=== PATIENT | female | born 1985 | race Caucasian/White ===

== ENCOUNTER 2018-08-04 00:18 | Inpatient (IN) | payer OTHER ==
[2018-08-04 00:19] VITALS: BMI 28.1
--- NOTE | 2018-08-04 00:44 | C.PDOC ---
Chief Complaint (Nursing): Abdominal Pain Past Medical History Vital Signs: Last Vital Signs Temp 98.2 F 08/04/18 00:23 Pulse 88 08/04/18 00:23 Resp BP 138/90 08/04/18 00:23 Pulse Ox 100 08/04/18 00:23 - [facility] Procedures DELIVERY OF PRODUCTS OF CONCEPTION, EXTERNAL APPROACH (06/09/16) MONITORING OF POC, CARDIAC RATE, INSTRUCTIONAL SUPPORT SERVICES DIRECTOR APPROACH (06/09/16) REPAIR PERINEUM MUSCLE, OPEN APPROACH (06/09/16) - Social History Hx Alcohol Use: No Hx Substance Use: No - Immunization History Hx Tetanus Toxoid Vaccination: No Hx Influenza Vaccination: Yes Hx Pneumococcal Vaccination: No ED Course And Treatment O2 Sat by Pulse Oximetry: 100 Disposition - Disposition
[2018-08-04] MEDS ORDERED: Sodium Chloride 0.9% 1,000 ML IV ONE ×2 (01:07→04:07)
--- NOTE | 2018-08-04 01:17 | C.PDOC ---
History Of Present Illness 33 y/o female, with no significant PMHx, presents to the ED for evaluation of RUQ pain gradually developing since 9:00pm. Pain is radiating to the right flank. Patient reports symptoms began after eating vegetable jean for dinner. N o associated nausea or vomiting. States she took naproxen prior to arrival without any relief. She otherwise denies any fever, chills, diarrhea, bowel or bladder incontinence. Patient reports was recently diagnosed with a UTI a few days ago and completed day 3 of Macrobid today. Time Seen by Provider: 08/04/18 00:47 Chief Complaint (Nursing): Abdominal Pain History Per: Patient History/Exam Limitations: no limitations Onset/Duration Of Symptoms: Hrs Current Symptoms Are (Timing): Still Present Context: Food Location Of Pain/Discomfort: RUQ Radiation Of Pain To:: Flank Quality Of Discomfort: "Pain" Past Medical History Reviewed: Historical Data, Nursing Documentation, Vital Signs Vital Signs: Last Vital Signs Temp 98.2 F 08/04/18 00:23 Pulse 88 08/04/18 00:23 Resp BP 138/90 08/04/18 00:23 Pulse Ox 100 08/04/18 00:23 Surgical History: No Surg Hx - [facility] Procedures DELIVERY OF PRODUCTS OF CONCEPTION, EXTERNAL APPROACH (06/09/16) MONITORING OF POC, CARDIAC RATE, SANITARIAN AIDE APPROACH (06/09/16) REPAIR PERINEUM MUSCLE, OPEN APPROACH (06/09/16) Family History: States: No Known Family Hx - Social History Hx Tobacco Use: No Hx Alcohol Use: No Hx Substance Use: No - Immunization History Hx Tetanus Toxoid Vaccination: No Hx Influenza Vaccination: Yes Hx Pneumococcal Vaccination: No Review Of Systems Except As Marked, All Systems Reviewed And Found Negative. Constitutional: Negative for: Fever, Chills, Sweats Respiratory: Negative for: Shortness of Breath Gastrointestinal: Positive for: Abdominal Pain (RUQ). Negative for: Nausea, Vomiting, Diarrhea, Hematochezia Genitourinary: Positive for: Dysuria. Negative for: Hematuria, Vaginal Bleeding Physical Exam - Physical Exam Appears: Non-toxic, No Acute Distress Skin: Normal Color, Warm, Dry, No Rash Head: Normacephalic Eye(s): bilateral: PERRL Oral Mucosa: Moist Throat: No Erythema Neck: Trachea Midline, Supple Cardiovascular: Rhythm Regular, No Murmur, No JVD Respiratory: No Decreased Breath Sounds, No Accessory Muscle Use, No Rales, No Stridor, No Wheezing Gastrointestinal/Abdominal: Soft, Tenderness (RUQ, mod), No Guarding, No Rebound Back: No CVA Tenderness, No Vertebral Tenderness Extremity: Normal ROM, No Deformity, No Swelling Extremity: Bilateral: Normal Color And Temperature, Normal ROM Neurological/Psych: Oriented x3, Normal Speech, Normal Motor, Normal Sensation, Normal Reflexes ED Course And Treatment - Laboratory Results Result Diagrams: 08/04/18 01:38 08/04/18 01:38 Lab Interpretation: Abnormal Urine POC: Negative O2 Sat by Pulse Oximetry: 100 (on RA) Pulse Ox Interpretation: Normal - CT Scan/US CT A/P Other Rad Studies (CT/US): Read By Radiologist, Radiology Report Reviewed CT/US Interpretation: CT SCAN OF THE ABDOMEN AND PELVIS WITH CONTRAST. CLINICAL HISTORY: Abdominal pain. TECHNIQUE: Multiple axial and coronal CT images were obtained through the abdomen and pelvis after administration of intravenous contrast material. COMMENTS: Fluid-filled stomach. Moderate amount of food residue is noted in the large bowels. Uncomplicated colonic diverticulosis. Mild diffuse thickening and enhancement of the gallbladder. The liver is of uniform attenuation without mass or defect. There is no intra or extrahepatic biliary ductal dilatation. The spleen is normal. The pancreas is of normal contour and attenuation characteristics. There is no evidence of adrenal mass. Both kidneys demonstrate prompt and equal nephrograms. The kidneys are normal in size, shape and configuration. There is no evidence of renal or ureteral mass. No renal or ureteral calculi are identified. There is no hydroureter or hydronephrosis. No evidence for appendicitis. There is no bowel wall thickenin g. No evidence for small or large bowel obstruction. There is no evidence of abdominal ascites or lymphadenopathy. There is no evidence of intrinsic or extrinsic bladder mass. There is no pelvic ascites or lymphadenopathy. Fat containing umbilical hernia without incarceration. Images of the lung bases show no evidence of pleural or parenchymal mass. There are no pleural effusions. The bony structures are free of lytic or blastic lesions. IMPRESSION: Fluid- filled stomach. Moderate amount of food residue is noted in the large bowels. Uncomplicated colonic diverticulosis. Mild diffuse thickening and enhancement of the gallbladder. Sonographic evaluation is suggested. Abd US Other Rad Studies (CT/US): Read By Radiologist, Radiology Report Reviewed CT/US Interpretation: Ultrasound of the gallbladder. Indication: Right upper quadrant pain for a week. Technique: Real-time ultrasound images were obtained. Findings: Nonaneurysmal aorta measuring 1.6 cm. Right kidney measures 10.8x3.7x4.2 cm. Diffuse thickening of the gallbladder measuring 6.1 mm. Nondilated common bile duct measuring 3.5 mm. Mildly enlarged liver measuring 16.9 cm. Diffuse increased hepatic echogenicity suggestive of hepatic steatosis. Mild amount of pericholecystic free fluid is noted. Impression: Cholelithiasis. Suspected developing acute inflammatory changes of the gallbladder. Progress Note: Blood work, UA, and CT A/P ordered and reviewed. IV fluids, toradol, and zofran administered. Pt remained tsable during the ED evaluation. Blood work review, high LFT noted. CT A/P:Mild diffuse thickening and enhancement of the gallbladder. Sonographic evaluation is suggested. case discussed with vice president network .Gallbladder US- pending. Admission to recommend with Dx: Acute cholecystitis. Disposition - Disposition Disposition: HOSPITALIZED Disposition Time: 03:51 Condition: STABLE - Clinical Impression Clinical Impression: Cholecystitis, UTI (urinary tract infection) - PA / HEALTH OUTCOMES LIAISON / Resident Statement MD/DO has reviewed & agrees with the documentation as recorded. - Scribe Statement The provider has reviewed the documentation as recorded by the Scribe (Loraine Reid) All medical record entries made by the Scribe were at my direction and personally dictated by me. I have reviewed the chart and agree that the record accurately reflects my personal performance of the history, physical exam, medical decision making, and the department course for this patient. I have also personally directed, reviewed, and agree with the discharge instructions and disposition.
[2018-08-04] MEDS ORDERED: Sodium Chloride 0.9% 1,000 ML ONE (01:19)
[2018-08-04] MEDS ORDERED: Iodixanol 320 MG/ML 100 ML BOTTLE IV ONE (01:23)
[2018-08-04 01:42] LABS: BASO % 0.4 % (0.0-2.0); EOS # 0.1 K/uL (0.0-0.7); EOS % 1.1 % (0.0-4.0); HEMOGLOBIN 13.8 g/dL (11.0-16.0); LYMPH % 20.7 % (20.0-40.0); MEAN CELL VOLUME 89.4 fL (81.0-99.0); MEAN CORPUSCULAR HEMOGLOBIN 31.8 pg (27.0-31.0); MEAN CORPUSCULAR HGB CONC 35.6 g/dL (33.0-37.0); MEAN PLATELET VOLUME 9.1 fL (7.2-11.7); MONO # 0.5 K/uL (0.0-0.8); NEUT # 7.2 K/uL (1.8-7.0); NEUT % 72.8 % (50.0-75.0); RBC 4.33 Mil/uL (3.80-5.20); RED CELL DISTRIBUTION WIDTH 12.5 % (11.5-14.5); WHITE BLOOD COUNT 9.9 K/uL (4.8-10.8)
[2018-08-04 01:43] LABS: HCG,QUALITATIVE URINE NEGATIVE (NEGATIVE)
[2018-08-04 01:51] LABS: SQUAMOUS EPITHIAL 7 /hpf (0-5); URINE BACTERIA OCC (<OCC); URINE BILIRUBIN NEGATIVE (NEGATIVE); URINE BLOOD 1+ (NEGATIVE); URINE CLARITY Hazy (Clear); URINE COLOR Amber (YELLOW); URINE GLUCOSE (UA) NORMAL (Normal); URINE LEUKOCYTE ESTERASE 2+ Leu/uL (Negative); URINE PROTEIN NEGATIVE (NEGATIVE)
[2018-08-04 01:59] LABS: ALB/GLOB RATIO 1.3 (1.0-2.1); ALBUMIN 4.5 g/dL (3.5-5.0); ALT/SGPT 207 U/L (9-52); AST/SGOT 439 U/L (14-36); BLOOD UREA NITROGEN 13 mg/dL (7-17); CALCIUM 8.8 mg/dl (8.6-10.4); GFR NON-AFRICAN AMERICAN > 60; LIPASE 118 U/L (23-300)
[2018-08-04] MEDS ORDERED: cefTRIAXone 1 gm 1 GM/100 ML BAG IVPB ONE (02:21)
[2018-08-04] MEDS: Lactated Ringer's 1,000 ML IV SCH ×2 (06:44→18:39)
[2018-08-04] MEDS: Ciprofloxacin 400mg/200ml D5W 400 MG/200 ML BAG IVPB SCH ×2 (06:44→18:39)
--- NOTE | 2018-08-04 08:27 | CP.PCM.HP ---
History of Present Illness - History of Present Illness History of Present Illness: Surgery: Dr. Jimenez Pt is a 33F with PMHx significant for GERD who presents to with complaints of abdominal pain x 1 day. Pt states her pain started yesterday after dinner, was located in the epigastrium/RUQ and radiated towards her back. Pt admits to having a similar episode 3 weeks ago however thought it was related to her heart burn. Pt states she has had several episodes of abdominal pain in the past that she treated at home with pain meds however, the episode last night was severe and did not get better after pain medication. She also admits to nausea but denies vomiting. Denies fevers/chills, chest pain or SOB. Admits to regular BMs. Pt states she has a UTI that she started taking ABx for 2 days ago per her PMD. In the ER, pt had a CT abdomen/pelvis which showed distended GB with surrounding fluid. US of the GB was also obtained and shows GB with stones, & wall thickening. Surgery called to evaluate. PMHx: GERD PSHx: denies SocialHx: denies smoking/EtOH/drugs NKDA Present on Admission - Present on Admission Any Indicators Present on Admission: No History of DVT/PE: No History of Uncontrolled Diabetes: No Urinary Catheter: No Decubitus Ulcer Present: No Review of Systems - Review of Systems All systems: reviewed and no additional remarkable complaints except (as per HPI) Past Patient History - Past Social History Smoking Status: Never Smoked - RENAL Other/Comment: UTI - PSYCHIATRIC Hx Substance Use: No - SURGICAL HISTORY Hx Surgeries: No - ANESTHESIA Hx Anesthesia: No Meds Allergies/Adverse Reactions: Allergies Allergy/AdvReac Type Severity Reaction Status Date / Time No Known Allergies Allergy Verified 08/04/18 00:30 Physical Exam - Constitutional Appears: Well, No Acute Distress - Head Exam Head Exam: ATRAUMATIC, NORMOCEPHALIC - Eye Exam Eye Exam: Normal appearance - ENT Exam ENT Exam: Mucous Membranes Moist - Respiratory Exam Respiratory Exam: NORMAL BREATHING PATTERN - Cardiovascular Exam Cardiovascular Exam: RRR - GI/Abdominal Exam GI & Abdominal Exam: Soft, Tenderness (to deep palpation RUQ ). absent: Distended, Guarding, Rebound - Neurological Exam Neurological exam: Alert, Oriented x3 - Skin Skin Exam: Dry, Warm Results - Vital Signs Recent Vital Signs: Last Vital Signs Temp 98.4 F 08/04/18 07:52 Pulse 73 08/04/18 07:52 Resp 16 08/04/18 07:52 BP 131/88 08/04/18 07:52 Pulse Ox 99 08/04/18 07:52 - Labs Result Diagrams: 08/04/18 01:38 08/04/18 01:38 Labs: Laboratory Results - last 24 hr 08/04/18 08/04/18 08/04/18 01:38 01:38 01:38 WBC 9.9 RBC 4.33 Hgb 13.8 Hct 38.7 MCV 89.4 D MCH 31.8 H MCHC 35.6 RDW 12.5 Plt Count 227 MPV 9.1 Neut % (Auto) 72.8 Lymph % (Auto) 20.7 [place] % (Auto) 5.0 Eos % (Auto) 1.1 Baso % (Auto) 0.4 Neut # (Auto) 7.2 H Lymph # (Auto) 2.0 [place] # (Auto) 0.5 Eos # (Auto) 0.1 Baso # (Auto) 0.0 Sodium 139 Potassium 4.1 Chloride 104 Carbon Dioxide 24 Anion Gap 15 BUN 13 Creatinine 0.5 L Est GFR ( Amer) > 60 Est GFR (Non-Af Amer) > 60 Random Glucose 118 H Calcium 8.8 Total Bilirubin 0.9 AST 439 H ALT 207 H Alkaline Phosphatase 138 H Total Protein 8.0 Albumin 4.5 Globulin 3.5 Albumin/Globulin Ratio 1.3 Lipase 118 Urine Color Margie Urine Clarity Hazy Urine pH 7.0 Ur Specific [place] 1.024 Urine Protein Negative Urine Glucose (UA) Normal Urine Ketones Negative Urine Blood 1+ H Urine Nitrate Negative Urine Bilirubin Negative Urine Urobilinogen 2.0 H Ur Leukocyte Esterase 2+ H Urine WBC (Auto) 23 H Urine RBC (Auto) 2 Ur Squamous Epith Cells 7 H Urine Bacteria Occ H Urine HCG, Qual Negative - Imaging and Cardiology CT scan - abdomen Status: Image reviewed by me US - abdomen Status: Image reviewed by me Assessment & Plan - Assessment and Plan (Free Text) Assessment: 33F with symptomatic cholelithiasis Plan: - IV ABX - CLD - will re-asses this PM and decide whether pt needs OR or outpt follow up for elective bre - d/w Dr. Tony Dominguez
--- NOTE | 2018-08-04 08:45 | CT ---
Date of service: 08/04/2018 PROCEDURE: CT Abdomen and Pelvis with contrast HISTORY: Right upper abd pain COMPARISON: None. TECHNIQUE: Contrast dose: 100 mL of Visipaque 320 intravenously. Axial and reformatted coronal and sagittal CT images of the abdomen and pelvis were obtained after IV contrast administration. Radiation dose: Total exam DLP = 493.33 mGy-cm. This CT exam was performed using one or more of the following dose reduction techniques: Automated exposure control, adjustment of the mA and/or kV according to patient size, and/or use of iterative reconstruction technique. FINDINGS: LOWER THORAX: Unremarkable. LIVER: Unremarkable. No gross lesion or ductal dilatation. GALLBLADDER AND BILE DUCTS: There is suspicious for gallstones. There is uzjg-ld-rohwogzn diffuse gallbladder wall thickening. The possibility of an early cholecystitis cannot be totally excluded. No evidence of intrahepatic or extrahepatic biliary ductal dilatation. PANCREAS: Unremarkable. No gross lesion or ductal dilatation. SPLEEN: Unremarkable. ADRENALS: Unremarkable. No mass. KIDNEYS AND URETERS: Unremarkable. No hydronephrosis. No solid mass. VASCULATURE: Unremarkable. No aortic aneurysm. No aortic atherosclerotic calcification or mural plaque present. BOWEL: The stomach is mildly to moderately distended.. No obstruction. No gross mural thickening. APPENDIX: No CT evidence of acute appendicitis. PERITONEUM: Unremarkable. No free fluid. No free air. LYMPH NODES: Unremarkable. No enlarged lymph nodes. BLADDER: Unremarkable. REPRODUCTIVE: The uterus is heterogeneous mildly enlarged. BONES: No acute fracture. OTHER FINDINGS: None. IMPRESSION: Suspicious for gallstones and early acute cholecystitis. Further evaluation by ultrasound is suggested. Dssdna-ec-jphzirqsiy distended stomach. Otherwise no evidence of acute pathology in the abdomen and pelvis. Preliminary report was submitted by [facility].
--- NOTE | 2018-08-04 10:23 | US ---
Date of service: 08/04/2018 HISTORY: RUQ pain COMPARISON: Comparison is made to the previous CT of the abdomen and pelvis dated 08/04/2018 TECHNIQUE: Sonographic evaluation of the right upper quadrant of the abdomen. FINDINGS: LIVER: Measures 16.9 cm in length. Increased heterogeneous echogenicity of the liver parenchyma. No mass. No intrahepatic bile duct dilatation. GALLBLADDER: Gallstone is noted. There mild to moderate gallbladder wall thickening measures up to 6.1 millimeter. COMMON BILE DUCT: Measures 3.5 mm. No stones. No dilatation. PANCREAS: Unremarkable as visualized. No mass. No ductal dilatation. RIGHT KIDNEY: Measures 10.8 x 3.7 x 4.1 cm in length. Normal echogenicity. No calculus, mass, or hydronephrosis. AORTA: No aneurysmal dilatation. IVC: Unremarkable. OTHER FINDINGS: None . IMPRESSION: Gallstone and mild to moderate gallbladder wall thickening. The possibility of acute cholecystitis should be considered. Mild hepatomegaly with findings suggestive of mild fibrofatty infiltration.
[2018-08-04] MEDS: metroNIDAZOLE IV 500 mg/100 ml 500 MG/100 ML BAG IVPB SCH ×2 (13:54→21:59)
[2018-08-05] MEDS: Lactated Ringer's 1,000 ML IV SCH ×3 (01:18→18:30)
[2018-08-05] MEDS: metroNIDAZOLE IV 500 mg/100 ml 500 MG/100 ML BAG IVPB SCH ×3 (05:44→21:32)
[2018-08-05] MEDS: Ciprofloxacin 400mg/200ml D5W 400 MG/200 ML BAG IVPB SCH ×2 (06:43→18:29)
[2018-08-05 08:22] LABS: HEMOGLOBIN 13.2 g/dL (11.0-16.0); MEAN CELL VOLUME 90.2 fL (81.0-99.0); MEAN CORPUSCULAR HEMOGLOBIN 30.6 pg (27.0-31.0); MEAN CORPUSCULAR HGB CONC 33.9 g/dL (33.0-37.0); MEAN PLATELET VOLUME 9.3 fL (7.2-11.7); RBC 4.33 Mil/uL (3.80-5.20); RED CELL DISTRIBUTION WIDTH 12.9 % (11.5-14.5)
[2018-08-05 08:28] LABS: INR 1.3; WHITE BLOOD COUNT 4.8 K/uL (4.8-10.8)
[2018-08-05 08:33] LABS: ALB/GLOB RATIO 1.3 (1.0-2.1); ALT/SGPT 728 U/L (9-52); AST/SGOT 382 U/L (14-36); BLOOD UREA NITROGEN 5 mg/dL (7-17); CALCIUM 8.8 mg/dl (8.6-10.4); GFR NON-AFRICAN AMERICAN > 60
[2018-08-05] MEDS ORDERED: Propofol 10 mg/ml Inj (20 ML) ONE (14:58)
[2018-08-05] MEDS ORDERED: Midazolam 2 MG/2 ML VIAL ONE (14:58)
[2018-08-05] MEDS ORDERED: Succinylcholine Chloride 20 mg/ml Syr (5 ml) IV ONE (15:27)
[2018-08-05] MEDS ORDERED: Neostigmine Methylsulfate 3mg/3ml Syringe IV ONE (16:04)
--- NOTE | 2018-08-05 16:41 | PCM.SURG1 ---
Surgeon's Initial Post Op Note - Surgeon's Notes Surgeon: Dr. Jimenez Spring Coiling Machine Setter: Dr. Dominguez PGY-3 Type of Anesthesia: General Endo Anesthesia Administered By: Dr. Cunningham Pre-Operative Diagnosis: Cholecystitis Operative Findings: See operative report Post-Operative Diagnosis: Same Operation Performed: Laparoscopic Cholecystectomy Specimen/Specimens Removed: Gallbladder Estimated Blood Loss: EBL {In ML}: 10 Blood Products Given: N/A Drains Used: No Drains Post-Op Condition: Good Date of Surgery/Procedure: 08/05/18 Time of Surgery/Procedure: 16:41
[2018-08-05] MEDS ORDERED: HYDROmorphone 0.5 mg/0.5 ml ISec IVP PRN (16:45)
[2018-08-05] MEDS ORDERED: HYDROmorphone 0.5 mg/0.5 ml ISec ONE (16:57)
[2018-08-05 18:24] VITALS: RESP 20; O2SAT 97
[2018-08-05] MEDS: Oxycodone/Acetaminophen 5/325 mg Tab PO PRN (19:50)
[2018-08-06] MEDS: Oxycodone/Acetaminophen 5/325 mg Tab PO PRN ×2 (01:23→07:35)
[2018-08-06] MEDS: metroNIDAZOLE IV 500 mg/100 ml 500 MG/100 ML BAG IVPB SCH (05:37)
[2018-08-06] MEDS: Ciprofloxacin 400mg/200ml D5W 400 MG/200 ML BAG IVPB SCH (06:30)
[2018-08-06 07:50] LABS: HEMOGLOBIN 13.3 g/dL (11.0-16.0); MEAN CELL VOLUME 89.9 fL (81.0-99.0); MEAN CORPUSCULAR HEMOGLOBIN 31.3 pg (27.0-31.0); MEAN CORPUSCULAR HGB CONC 34.8 g/dL (33.0-37.0); RBC 4.25 Mil/uL (3.80-5.20); RED CELL DISTRIBUTION WIDTH 12.5 % (11.5-14.5)
[2018-08-06 07:52] LABS: WHITE BLOOD COUNT 10.7 K/uL (4.8-10.8)
[2018-08-06 08:30] VITALS: BP 127/85; PULSE 70; TEMP 98.6
[2018-08-06 08:33] LABS: ALB/GLOB RATIO 1.2 (1.0-2.1); ALBUMIN 3.9 g/dL (3.5-5.0); ALT/SGPT 521 U/L (9-52); AST/SGOT 141 U/L (14-36); BLOOD UREA NITROGEN 8 mg/dL (7-17); GFR NON-AFRICAN AMERICAN > 60
--- NOTE | 2018-08-06 09:18 | CP.PCM.DIS ---
Provider - Provider Date of Admission: 08/04/18 04:06 Attending physician: Debbie Jimenez MD Time Spent in preparation of Discharge (in minutes): 35 Diagnosis - Discharge Diagnosis (1) S/P cholecystectomy Status: Acute Priority: High (2) Cholecystitis Status: Acute Priority: High (3) UTI (urinary tract infection) Status: Acute Priority: Medium Hospital Course - Lab Results Lab Results: Micro Results 08/04/18 02:50 Blood Blood Culture - Preliminary NO GROWTH AFTER 48 HOURS 08/04/18 02:50 Blood Blood Culture - Preliminary NO GROWTH AFTER 48 HOURS 08/04/18 02:50 Urine,Clean Catch Urine Culture - Final <10,000 CFU/ML. MULTIPLE SPECIES. PROBABLE CONTAMINATION. Most Recent Lab Values WBC 10.7 K/uL (4.8-10.8) D 08/06/18 07:33 RBC 4.25 Mil/uL (3.80-5.20) 08/06/18 07:33 Hgb 13.3 g/dL (11.0-16.0) 08/06/18 07:33 Hct 38.2 % (34.0-47.0) 08/06/18 07:33 MCV 89.9 fL (81.0-99.0) 08/06/18 07:33 MCH 31.3 pg (27.0-31.0) H 08/06/18 07:33 MCHC 34.8 g/dL (33.0-37.0) 08/06/18 07:33 RDW 12.5 % (11.5-14.5) 08/06/18 07:33 Plt Count 234 K/uL (130-400) 08/06/18 07:33 MPV 10.0 fL (7.2-11.7) 08/06/18 07:33 Neut % (Auto) 72.8 % (50.0-75.0) 08/04/18 01:38 Lymph % (Auto) 20.7 % (20.0-40.0) 08/04/18 01:38 [place] % (Auto) 5.0 % (0.0-10.0) 08/04/18 01:38 Eos % (Auto) 1.1 % (0.0-4.0) 08/04/18 01:38 Baso % (Auto) 0.4 % (0.0-2.0) 08/04/18 01:38 Neut # (Auto) 7.2 K/uL (1.8-7.0) H 08/04/18 01:38 Lymph # (Auto) 2.0 K/uL (1.0-4.3) 08/04/18 01:38 [place] # (Auto) 0.5 K/uL (0.0-0.8) 08/04/18 01:38 Eos # (Auto) 0.1 K/uL (0.0-0.7) 08/04/18 01:38 Baso # (Auto) 0.0 K/uL (0.0-0.2) 08/04/18 01:38 PT 14.0 SECONDS (9.7-12.2) H 08/05/18 08:08 INR 1.3 08/05/18 08:08 APTT 34 SECONDS (21-34) 08/05/18 08:08 Sodium 139 mmol/L (132-148) 08/06/18 07:33 Potassium 4.3 mmol/L (3.6-5.2) 08/06/18 07:33 Chloride 103 mmol/L (98-107) 08/06/18 07:33 Carbon Dioxide 24 mmol/L (22-30) 08/06/18 07:33 Anion Gap 16 (10-20) 08/06/18 07:33 BUN 8 mg/dL (7-17) 08/06/18 07:33 Creatinine 0.6 mg/dL (0.7-1.2) L 08/06/18 07:33 Est GFR ( Amer) > 60 08/06/18 07:33 Est GFR (Non-Af Amer) > 60 08/06/18 07:33 Random Glucose 126 mg/dL (65-105) H 08/06/18 07:33 Calcium 9.0 mg/dl (8.6-10.4) 08/06/18 07:33 Total Bilirubin 0.4 mg/dL (0.2-1.3) 08/06/18 07:33 AST 141 U/L (14-36) H D 08/06/18 07:33 ALT 521 U/L (9-52) H D 08/06/18 07:33 Alkaline Phosphatase 165 U/L (38-126) H 08/06/18 07:33 Total Protein 7.0 g/dL (6.3-8.3) 08/06/18 07:33 Albumin 3.9 g/dL (3.5-5.0) 08/06/18 07:33 Globulin 3.1 gm/dL (2.2-3.9) 08/06/18 07:33 Albumin/Globulin Ratio 1.2 (1.0-2.1) 08/06/18 07:33 Lipase 118 U/L (23-300) 08/04/18 01:38 Beta HCG, Quant < 2.39 mIU/ML 08/05/18 08:08 Urine Color Margie (YELLOW) 08/04/18 01:38 Urine Clarity Hazy (Clear) 08/04/18 01:38 Urine pH 7.0 (5.0-8.0) 08/04/18 01:38 Ur Specific [place] 1.024 (1.003-1.030) 08/04/18 01:38 Urine Protein Negative mg/dL (NEGATIVE) 08/04/18 01:38 Urine Glucose (UA) Normal mg/dL (Normal) 08/04/18 01:38 Urine Ketones Negative mg/dL (NEGATIVE) 08/04/18 01:38 Urine Blood 1+ (NEGATIVE) H 08/04/18 01:38 Urine Nitrate Negative (NEGATIVE) 08/04/18 01:38 Urine Bilirubin Negative (NEGATIVE) 08/04/18 01:38 Urine Urobilinogen 2.0 mg/dL (0.2-1.0) H 08/04/18 01:38 Ur Leukocyte Esterase 2+ [place]/uL (Negative) H 08/04/18 01:38 Urine WBC (Auto) 23 /hpf (0-5) H 08/04/18 01:38 Urine RBC (Auto) 2 /hpf (0-3) 08/04/18 01:38 Ur Squamous Epith Cells 7 /hpf (0-5) H 08/04/18 01:38 Urine Bacteria Occ (<OCC) H 08/04/18 01:38 Urine HCG, Qual Negative (NEGATIVE) 08/04/18 01:38 - Hospital Course Hospital Course: 33F with PMH of GERD and active UTI being treated at home with PO antibiotics who presented to the ED for acute cholecystitis and underwent a laparoscopic cholecystectomy without complication. Patient tolerated the procedure well, urinating adequately, tolerating diet, passing gas, ambulating, and tolerating pain on PO pain medication on POD#1. Patient was discharged to home with instructions to continue current antibiotics for UTI she has at home, take PO pain medication as needed, and follow up with Dr. Jimenze in her office in 2 weeks For full hospital course, please see chart Discharge Exam - Head Exam Head Exam: ATRAUMATIC, NORMOCEPHALIC - Eye Exam Eye Exam: Normal appearance. absent: Conjunctival injection, Scleral icterus - ENT Exam ENT Exam: Mucous Membranes Moist, Normal Oropharynx - Respiratory Exam Respiratory Exam: NORMAL BREATHING PATTERN, UNREMARKABLE. absent: Accessory Muscle Use - GI/Abdominal Exam GI & Abdominal Exam: Distended (mild), Soft, Tenderness (RUQ and naa- incisional). absent: Rebound Additional comments: incisions well approximated with dermabond, no surrounding erythema or drainage - Extremities Exam Extremities exam: normal inspection, pedal pulses present - Neurological Exam Neurological exam: Alert, Oriented x3 - Psychiatric Exam Psychiatric exam: Normal Affect, Normal Mood - Skin Skin Exam: Dry, Normal Color, Warm Discharge Plan - Discharge Medications Prescriptions: oxyCODONE/Acetaminophen [Percocet 5/325 mg Tab] 1 tab PO Q4H PRN #15 tab PRN Reason: Pain, Moderate (4-7) - Follow Up Plan Condition: STABLE Disposition: HOME/ ROUTINE Instructions: Cholecystectomy (DC) Additional Instructions: Call Dr. Jimenez's office to schedule an appointment in 2 weeks No heavy lifting (>15 pounds) for 4 weeks You may shower but don't soak the incisions (no hot tubs or swimming or ointment) Glue will fall off on it's own Take pain medication as needed with stool softener for any constipation--do not drive while taking Come to ER or call Dr. Jimenez's office for severe pain, fever >100.4 after taking tylenol, severe nausea and vomiting, or any other concerning symptoms Referrals: Debbie Jimenez MD [Staff Provider] - Clinical Quality Measures - CQM - Stroke Antithrombotic Prescribed: Medical Contraindication Present Contranindication/Reason for not providing: Risk for Bleeding
--- NOTE | 2018-08-08 19:48 | CARD ---
APPROVED REPORT Date of service: 08/05/2018 EKG Measurement Heart [id number] <Conclusion> Normal sinus rhythm Low voltage QRS Borderline ECG
--- NOTE | 2018-08-10 01:35 | OP ---
PROCEDURE DATE: 08/05/2018 PREOPERATIVE DIAGNOSIS: Cholecystitis. POSTOPERATIVE DIAGNOSIS: Cholecystitis. PROCEDURE: Laparoscopic cholecystectomy. SURGEON: Debbie Jimenez MD. THERAPY TEACHER: Ebonie Dominguez DO. TYPE OF ANESTHESIA: General. ANESTHESIA ADMINISTERED BY: Dr. Benjamin Cunningham. DESCRIPTION OF PROCEDURE: With the patient in the supine position under adequate general anesthesia, the abdomen was prepped and draped in the usual sterile manner. A Veress needle puncture was performed at the umbilicus with insufflation to 15 cm water pressure of CO2 and a 10-mm laparoscopic trocar was inserted via an infraumbilical incision. Under direct vision, additional trocars were inserted in the epigastrium and right costal margin. The gallbladder was visualized. It was descended, although not acutely inflamed, and the gallbladder was aspirated of approximately 20 mL of dark bile allowing the gallbladder fundus to be grasped and elevated. The infundibular area was grasped and retracted laterally, and the cystic duct was identified and dissected. Single cystic artery was also identified and dissected, and after both circuits were viewed anteriorly and posteriorly, the cystic duct was triply clipped and divided. The cystic artery was then triply clipped and divided, and the gallbladder was dissected free of the liver bed using electrocautery. The liver bed was edematous consistent with the recent inflammation. The gallbladder bed was inspected for hemostasis and the dissection was completed. The gallbladder was placed in a specimen retrieval bag and removed via the umbilical port site. The right upper quadrant was irrigated and suctioned. The pneumoperitoneum was released and the trocars were removed. The umbilical port site was closed with a [id number] fascial suture of 0 Vicryl. All incisions were closed with 4-0 Monocryl subcuticular sutures and Steri-Strips. Dry sterile dressings were applied. The patient tolerated the procedure well and was transferred to the recovery room in stable condition. Estimated blood loss for the procedure was 10 mL. Debbie Jimenez MD
== END 2018-08-06 15:12 | disposition home or self-care (01) | DRG 418 ==
LOC: C.ER 00:18 → C.9E 04:06 → C.5S 06:42
PROVIDERS: ADMIT Specialist; ATTEND Specialist
PROC: 0FT44ZZ Resection of Gallbladder, Percutaneous Endoscopic Approach (ICD-10-PCS; principal; 2018-08-05 11:15)
DX: K80.10 Calculus of gallbladder with chronic cholecystitis without obstruction (principal); N39.0 Urinary tract infection, site not specified; K21.9 Gastro-esophageal reflux disease without esophagitis